=== PATIENT | female | born 1940 | race Caucasian/White ===

== ENCOUNTER 2022-06-25 10:42 | Outpatient (CLI) | payer MEDICARE, OTHER | END 2022-06-25 10:43 | disposition home or self-care (01) | LOC: CSHMAMMO 10:42 | PROVIDERS: ATTEND Internal Medicine | DX: Z12.31 Encounter for screening mammogram for malignant neoplasm of breast (principal); Z98.890 Other specified postprocedural states; Z91.89 Other specified personal risk factors, not elsewhere classified | CPT/HCPCS: 77063; 77067 ==

== ENCOUNTER 2022-06-26 08:12 | Outpatient (CLI) | payer MEDICARE, OTHER | END 2022-06-26 08:13 | disposition home or self-care (01) | LOC: CSHULT 08:12 | PROVIDERS: ATTEND Internal Medicine | DX: N64.89 Other specified disorders of breast (principal) | CPT/HCPCS: 77065; G0279 ==

== ENCOUNTER 2023-07-30 09:40 | Outpatient (CLI) | payer MEDICARE, OTHER | END 2023-07-30 09:41 | disposition home or self-care (01) | LOC: CSHMAMMO 09:40 | PROVIDERS: ATTEND Internal Medicine | DX: Z12.31 Encounter for screening mammogram for malignant neoplasm of breast (principal); Z91.89 Other specified personal risk factors, not elsewhere classified | CPT/HCPCS: 77063; 77067 ==

== ENCOUNTER 2024-07-31 10:29 | Outpatient (CLI) | payer MEDICARE, OTHER | END 2024-07-31 10:30 | disposition home or self-care (01) | LOC: CSHMAMMO 10:29 | PROVIDERS: ATTEND Internal Medicine | DX: Z12.31 Encounter for screening mammogram for malignant neoplasm of breast (principal); Z91.89 Other specified personal risk factors, not elsewhere classified | CPT/HCPCS: 77063; 77067 ==